=== PATIENT | female | born 1985 | race Caucasian/White ===

== ENCOUNTER 2022-07-02 11:03 | Outpatient (CLI) | payer BC, SELFPAY ==
--- NOTE | 2022-07-02 11:30 | ECG_ITS ---
Measurements Intervals [place] Rate: 86 P: -2 LA: 122 QRS: 38 QRSD: 83 T: 18 QT: 359 QTc: 431 Interpretive Statements SINUS RHYTHM BASELINE ARTIFACT- I, II, III, AVR, AVL, AVF, AVF NORMAL ECG NO PREVIOUS ECG AVAILABLE FOR COMPARISON Electronically Signed On 07-02-2022 14:17:41 CDT by Cristobal Gallegos D.O.
== END 2022-07-02 11:04 | disposition home or self-care (01) ==
LOC: ANHSURGERY 11:06
PROVIDERS: PCP Physician Assistant Medical; Visit Provider Obstetrics & Gynecology Gynecologic Oncology
DX: I10 Essential (primary) hypertension (principal)
CPT/HCPCS: 93005

== ENCOUNTER 2022-07-08 00:47 | Day surgery (SDC) | payer BC, SELFPAY ==
[2022-06-26 16:00] VITALS: BMI 23.9
--- NOTE | 2022-06-26 16:09 | PC.NURSE ---
Report to the Outpatient Waiting Room, entrance under the green pavilion located off [facility], at time 0830 on date 07/08/22. Planned Procedure Time: 1030. Time changes happen often and if your time is changed the preop area will call you the afternoon before. - You and your visitor will be asked to self-screen and do not enter if you have any COVID symptoms. - Only one visitor is requested with a max of two and NO children visitors are allowed at this time. - The patient visitor may be requested to leave or wait in car when not with patient due to distancing restrictions. - A mask is optional within the hospital at this time. Patients may have clear liquids (water, carbonated beverages, clear teas, apple juice) until 3 hours prior to surgery with a maximum of 20 ounces. 0730 - No food from midnight until time of surgery - Infants may have breast milk until 4 hours before surgery, formula 6 hours prior to surgery. - Children will be allowed to drink immediately following surgery. If applicable, please bring a bottle or sippy cup to assist with drinking. Juice, water, soda, and popsicles are readily available. For infants on formula, please bring formula the day of surgery. Pacifiers are allowed. Take the following medications with a SIP of water the morning of surgery: Coreg DO NOT STOP ANY OF YOUR OTHER PRESCRIPTION MEDICATIONS PRIOR TO SURGERY ?EXCEPT THE FOLLOWING Medications to discontinue per physician N/A Date to take last dose N/A Please no make-up, nail turkish, hairspray, perfume, deodorant, or body powder the day of surgery. No jewelry (including any body piercings) or valuables the day of surgery, leave them at home. Please take a shower or bath the night before, or the morning of, surgery with an antibacterial soap. Wear comfortable, loose fitting clothing. Children are encouraged to wear pajamas. - Jewelry must be removed prior to entering the operating room. Rings and piercings that are not removed may be cut off. - The hospital will not accept responsibility for valuables. - Please leave all valuables, including medications, at home the day of surgery. If you are going home after surgery, a licensed delivery driver/supervisor must drive you home. - NO public transportation without another adult if you receive anesthesia. - We recommend that an adult stay with you for 24 hours following discharge. - We also recommend that you do not drive, make important decision, drink alcoholic beverages, or take any drugs that were not prescribed by your health care provider for at least 24 hours after your discharge time. For Pediatric surgeries, we recommend two adults accompany the child home. Follow any additional instructions given to you from your surgeon. If you or anyone in your household have experienced Covid symptoms in the past week, please notify your surgeon or the nurse liaison at the phone number below for possible testing. Telephone instructions given to Aisha Ruby and asked if any additional questions and then verbalized understanding. Patient advised to call surgeon office or pre surgery nurse liaison [phone] if any additional questions.
[2022-07-08] VITALS (9 sets, daily range): BP systolic 86–147; BP diastolic 54–109; PULSE 63–90; RESP 10–18; TEMP 36.5–36.8; O2SAT 99–100
[2022-07-08] MEDS: GABAPENTIN 300 MG CAPSULE PO (09:05)
[2022-07-08] MEDS: ACETAMINOPHEN 500 MG TABLET 1000 MG PO (09:05)
[2022-07-08] MEDS: LACTATED RINGERS 1,000 ML 30 ML IV CONT (09:15)
--- NOTE | 2022-07-08 09:50 | WPDANESEPPF ---
Anes - Initial Pre Proc Eval Procedure: Operation Date: 07/08/22 10:30 Proposed Procedures p Diagnostic Laparoscopy with Bilateral Salpingectomy - Iveth Dobson DO Date/Time: 07/08/22 09:50 Surgeon: Iveth Dobson DO Pre Op Diagnosis: desires sterilization Patient Data Age: 37 Gender: F Height: 1.6 m Weight: 57.7 kg Last Vital Signs Temp 36.8 C 07/08/22 08:39 Pulse 80 07/08/22 08:39 Resp 18 07/08/22 08:39 BP 143/103 H 07/08/22 08:39 Pulse Ox 100 07/08/22 08:39 O2 Del Method Room Air 07/08/22 08:39 Allergies Allergy/AdvReac Type Severity Reaction Status Date / Time levofloxacin Allergy Mild Unknown Verified 07/08/22 08:50 Home Medications Medication Instructions Recorded Confirmed Type carvedilol 3.125 mg tablet (Coreg) 3.125 mg PO BID 06/26/22 06/26/22 History Patient hx anesthesia problems: post op nausea/vomiting Family hx anesthesia problems: post op nausea/vomiting Results Review: All pre-operative results and documents have been reviewed as part of the pre-operative evaluation. [facility] Past Medical History Medical History Chronic hypertension affecting Encounter for cervical Pap smear with pelvic exam Encounter for test, result positive Encounter for supervision of normal in second trimester Hypertension affecting in first trimester Missed period Supervision of other high risk pregnancies, first trimester Supervision of other high risk pregnancies, second trimester Family History Family History Mother Hypertension Family history of elevated blood lipids Cerebrovascular accident Family history of malignant neoplasm of cervix Family history of coronary artery disease Grandparent Family history of malignant neoplasm of breast, Onset Age: 51 Social History Social History Smoking status: Never smoker Alcohol intake: current Drinks per week: 2 Substance use: current Substance use type: marijuana Other substance usage details: rarely uses edibles Lack of Transportation: No Lack of Food: Never True Current Housing: I Have Housing Concerned About Future Housing: No Difficulty Paying Gas/Electric Bills: No Difficulty Paying for Meds: No Currently Unemployed: No Education: High School Diploma/GED Difficulty w/ Childcare or Family Care: No Living arrangements: with family Occupation/Education: occupation Gender identity (if verbalized by the patient): Female Sexual Orientation (if Verbalized by the Patient): Straight or Heterosexual Spiritual care concerns: No Anes - Eval Final PreProcedure Day of Procedure 07/08/22 09:50 Patient weight: normal Heart: regular rate and rhythm Lungs: clear to auscultation Airway: Mallampati scale class II Neurological: alert and oriented Last oral intake: >/= 8 hours ASA classification: II Emergent: no Anesthetic plan: proceed Anesthesia type and monitoring: general ETT and standard monitoring Results Review: All pre-operative results and documents have been reviewed as part of the pre-operative evaluation. Informed Consent: The patient's anesthetic plan and its attendant risks and benefits were discussed with the patient/family/POA. Questions were solicited and answers provided to the satisfaction of the patient/family/POA.
--- NOTE | 2022-07-08 09:57 | PM.IMHP ---
H&P: HPI History of Present Illness Date/Time: 07/08/22 09:57 Chief Complaint: I'm here for my surgery Narrative: Aisha presents for diagnostic laparoscopy, bilateral salpingectomy desiring permanent sterilization Review of Systems Review of Systems: All systems reviewed & are unremarkable except as noted in HPI and below PMFSH Past Medical History Medical History Chronic hypertension affecting Encounter for cervical Pap smear with pelvic exam Encounter for test, result positive Encounter for supervision of normal in second trimester Hypertension affecting in first trimester Missed period Supervision of other high risk pregnancies, first trimester Supervision of other high risk pregnancies, second trimester Family History Family History Mother Hypertension Family history of elevated blood lipids Cerebrovascular accident Family history of malignant neoplasm of cervix Family history of coronary artery disease Grandparent Family history of malignant neoplasm of breast, Onset Age: 51 Social History Social History Smoking status: Never smoker Alcohol intake: current Drinks per week: 2 Substance use: current Substance use type: marijuana Other substance usage details: rarely uses edibles Lack of Transportation: No Lack of Food: Never True Current Housing: I Have Housing Concerned About Future Housing: No Difficulty Paying Gas/Electric Bills: No Difficulty Paying for Meds: No Currently Unemployed: No Education: High School Diploma/GED Difficulty w/ Childcare or Family Care: No Living arrangements: with family Occupation/Education: occupation Gender identity (if verbalized by the patient): Female Sexual Orientation (if Verbalized by the Patient): Straight or Heterosexual Spiritual care concerns: No Meds Home Medications and Allergies Home Medications Medication Instructions Recorded Confirmed Type carvedilol 3.125 mg tablet (Coreg) 3.125 mg PO BID 06/26/22 06/26/22 History Allergies Allergy/AdvReac Type Severity Reaction Status Date / Time levofloxacin Allergy Mild Unknown Verified 07/08/22 08:50 Vital Signs Vital Signs - 24 hr 07/08/22 08:39 Temperature 36.8 C Pulse Rate 80 Respiratory Rate 18 Blood Pressure 143/103 H Pulse Oximetry 100 Oxygen Delivery Room Air Exam Const: General: comfortable and no acute distress Eyes: General: appearance normal, both eyes and all related structures Resp: Effort & Inspection: normal respiratory effort Auscultation: clear to auscultation bilaterally Cardio: Rate: regular rate Rhythm: regular rhythm GI: GI Palp: Yes Soft to palpation Auscultation: normal bowel sounds Psych: Mental Status: mental status grossly normal Affect: normal affect Assessment and Plan Assessment and plan (1) Sterilization: Code(s): Z30.2 - Encounter for sterilization Status: Acute Plan Diagnostic laparoscopy, bilateral salpingectomy Quality VTE Prophylaxis VTE prophylaxis: mechanical ordered If No VTE Prophylaxis Answer both mechanical and pharmacologic: Reason no pharmacologic proph: medical contraindication
--- NOTE | 2022-07-08 10:00 | WPDHPUPDATE1 ---
History and Physical Update Update Date/Time: 07/08/22 10:00 History and Physical has been reviewed, including an updated exam of the patient. There are NO changes in the patient's condition. Risks, benefits, and alternatives have been discussed and questions answered. Patient agrees to proceed with procedure.
[2022-07-08] MEDS: SCOPOLAMINE 1.5 MG PATCH TRANSDERM (10:15)
[2022-07-08] MEDS: BUPIVACAINE/EPINEPHRINE 0.25% 50 ML VIAL 20 ML INFILTRATE (10:58)
[2022-07-08] MEDS: KETOROLAC 30 MG/ML VIAL (*BKC) IV PUSH (11:00)
--- NOTE | 2022-07-08 11:15 | P.OP_ITS ---
Procedure Note - Detailed Date of Procedure 07/08/22 Pre-op Diagnosis desires sterilization Post-op Diagnosis Same Procedure Performed Diagnostic laparoscopy, bilateral salpingectomy Surgeon Iveth Dobson DO Nut Threader Jennifer Anesthesia General Indications Desires permanent sterilization Findings Normal appearing vulva and vaginal canal. Medium sized cervix. Uterus sounded to 8 cm. Internally, the intestines, liver and stomach were grossly normal. The ovaries each contained a simple cyst. The uterus, tubes and ovaries were otherwise unremarkable. There was a single omental adhesion just above the pelvic brim in the midline attached to the anterior abdominal wall. Description of Procedure Patient was taken to the operating room she was placed under general anesthesia. She was prepped and draped in the normal sterile fashion in a dorsal lithotomy position. No preoperative antibiotics were indicated. A time-out was performed. A speculum was placed in the vagina and the cervix was visualized. The anterior lip of the cervix was grasped with a long Allis clamp. The uterus was sounded to 8 cm. Cervix was sequentially dilated to accommodate a Kroner uterine manipulator. Once this was placed, gloves were changed and attention was then turned to the abdomen. The skin above the umbilicus was grasped with 2 penetrating towel clamps and the area was injected with local. A small incision was made. A Veress needle was introduced and the saline water drop test was performed to confirm intraperitoneal placement. CO2 insufflation was started in the abdomen was brought to a filling pressure of 15 mmHg. The Veress needle was then removed and replaced with a 5 mm trocar which was inserted under direct visualization. Survey of the abdomen revealed no evidence of bowel or vascular injury upon entry. The patient was then placed in steep Trendelenburg position. Additional port sites in the right and left lower quadrants were identified, injected and incised. 5 mm trocars were placed under direct visualization. Survey of the pelvis was as mentioned above. The right tube was elevated and was cauterized and transected off using the LigaSure. The specimen was passed off through the glass ribbon machine operator assistant trocar. In an identical fashion, the procedure was repeated on the left-hand side. The pedicles were reinspected and found to be hemostatic. The instruments and the trocars were removed from the abdomen. The CO2 was allowed to escape. The abdominal incisions were closed with subcuticular 4-0 Monocryl. Uterine manipulator was removed from the vagina atraumatically. The patient was taken to the recovery room in stable condition. All instrument and sponge counts were correct at the conclusion of the procedure. Estimated Blood Loss 5 Drains No Packing No Pathology Yes Complications No immediate complications Condition Stable Disposition PACU
== END 2022-07-08 13:06 | disposition home or self-care (01) ==
PROVIDERS: PCP Physician Assistant Medical; Visit Provider Obstetrics & Gynecology Gynecologic Oncology
PROC: (CPT 49320; principal; 2022-07-08 10:30)
DX: Z30.2 Encounter for sterilization (principal); N83.292 Other ovarian cyst, left side; N83.291 Other ovarian cyst, right side; N73.6 Female pelvic peritoneal adhesions (postinfective); I10 Essential (primary) hypertension; F12.90 Cannabis use, unspecified, uncomplicated
CPT/HCPCS: 58661; 88302; A9270; J1100; J1885; J2250; J2405; J2704; J2710; J3010; J7030; J7120